=== PATIENT | male | born 1960 | race Asian ===

== ENCOUNTER 2023-03-20 17:55 | Emergency (ER) | payer OTHER, SELFPAY ==
[2023-03-20 18:06] VITALS: BP 127/79; PULSE 81; RESP 18; TEMP 36.6; O2SAT 98; BMI 32.1
--- NOTE | 2023-03-20 18:08 | ED_ITS ---
HPI - General Adult General Chief complaint: Eye Problems Stated complaint: right eye red and swollen Time Seen by Provider: 03/20/23 19:09 Source: patient Mode of arrival: ambulatory Limitations: no limitations History of Present Illness HPI narrative: 8-year-old male presents with right eye pain. His symptoms started 2 days ago. Noticed irritation lateral part of his right eye. He then noticed yesterday's significant swelling and redness. Had no fevers or chills. No vision changes. No photophobia. No double vision. Denies any trauma or injury. Patient notes his symptoms are moderate to severe in nature. There is no clear relieving or exacerbating features. The pain he has does not radiate. Related Data Previous Rx's Medication Instructions Recorded amoxicillin 875 mg tablet 875 mg PO BID #14 tabs 03/20/23 polymyxin B sulfate 10,000 2 drp ophthalmic-Left QID 7 days 03/20/23 unit-trimethoprim 1 mg/mL eye #10 mL drops (Polytrim) Allergies Allergy/AdvReac Type Severity Reaction Status Date / Time No Known Allergies Allergy Verified 03/20/23 18:06 Review of Systems Review of Systems: CONSTITUTIONAL: Denies weight loss, fever and chills. HEENT: Denies changes in vision and hearing. RESPIRATORY: Denies SOB and cough. CV: Denies palpitations no CP. GI: Denies abdominal pain, nausea, vomiting and diarrhea. : Denies dysuria and urinary frequency. MSK: Denies myalgia and joint pain. SKIN: Denies rash and pruritus. NEUROLOGICAL: Denies headache and syncope. PSYCHIATRIC: Denies recent changes in mood. Denies anxiety and depression. All other ROS are negative unless in HPI [facility] Social History Social History Advance Directives: No Advance Directives Information Provided: Yes Physical Exam ED Vital Signs: Vital Signs - 24 hr 03/20/23 18:06 Temperature 98 F Pulse Rate 81 Respiratory Rate 18 Blood Pressure 127/79 Pulse Oximetry 98 BMI result Body Mass Index 32.1 GEN: Well developed, no acute distress, alert, oriented HEENT: Normocephalic, atraumatic, normal external ears, nose appears normal Eyes: Normal to appearance, right periorbital erythema and edema, tenderness, o r the OM in the right lateral lower eyelid Neck: Supple, no lymphadenopathy Respiratory: Talks in complete sentences, no respiratory distress Extremities: No clubbing cyanosis or edema Neurologic: No focal neurologic deficits, cranial nerves 2-12 intact, gait normal Skin: No rash Course Course Course Narrative: RME- 62 year old male presents for evaluation of right eye pain for the last 3 days. Denies getting anything in the eye. Right lower eyelid is edematous and mildly erythematous. Medical Decision Making Medical Decision Making [facility] Narrative: Patient has a hordeolum of the right lower eyelid. This is likely causing inflammatory changes. However, cannot rule out preseptal orbital cellulitis. In that event I will treat the patient with antibiotics both topical and oral. He can follow up with an model maker plastic if needed. Differential Diagnosis Differential Diagnoses: The differential diagnosis associated with the presentation includes (Cellulitis, hordeolum) Prescription Management I considered prescription management with: Pain Medication and Antibiotic Discharge Plan Discharge Clinical Impression: Hordeolum, Cellulitis, periorbital Patient Disposition: Home, Self-Care Instructions: Adam (ED), Periorbital Cellulitis in Adults (ED) Prescriptions: New polymyxin B sulf-trimethoprim [Polytrim] 10,000 unit- 1 mg/mL drops 2 drp ophthalmic-Left QID 7 Days Qty: 10 0RF Rx Instructions: while awake; do not exceed 6 doses in 24 hours amoxicillin 875 mg tablet 875 mg PO BID Qty: 14 0RF Referrals: Nick Carrion [Physician] - 1 week
[2023-03-20] MEDS: Amoxicillin 500 MG CAPSULE PO (20:00)
== END 2023-03-20 20:12 | disposition home or self-care (01) ==
PROVIDERS: Emergency Provider Emergency Medicine
DX: H00.012 Hordeolum externum right lower eyelid (principal); L03.213 Periorbital cellulitis
CPT/HCPCS: 99282; 99283